=== PATIENT | male | born 1960 | race Caucasian/White ===

== ENCOUNTER 2021-06-10 18:29 | Emergency (ER) | payer BC ==
[2021-06-10 19:12] VITALS: TEMP 98.2
--- NOTE | 2021-06-10 19:32 | XR ---
EXAMINATION TYPE: XR ankle complete RT DATE OF EXAM: 06/10/2021 COMPARISON: NONE HISTORY: Ankle pain TECHNIQUE: 3 views FINDINGS: There is plantar and Achilles calcaneal spurring. Ankle mortise is anatomic. There is soft tissue swelling over the lateral malleolus. IMPRESSION: Calcaneal spurring. Soft tissue swelling. No fracture seen.
--- NOTE | 2021-06-10 21:19 | ED ---
Fall HPI - General Chief Complaint: Fall Stated Complaint: Fell,RT ankle injury Time Seen by Provider: 06/10/21 21:18 Source: patient Mode of arrival: ambulatory - Related Data Home Medications Medication Instructions Recorded Confirmed Simvastatin [Zocor] 20 mg PO HS 01/19/16 01/19/16 Allergies Allergy/AdvReac Type Severity Reaction Status Date / Time No Known Allergies Allergy Verified 06/10/21 19:08 Review of Systems ROS Statement: Those systems with pertinent positive or pertinent negative responses have been documented in the HPI. ROS Other: All systems not noted in ROS Statement are negative. Past Medical History Past Medical History: Hyperlipidemia History of Any Multi-Drug Resistant Organisms: None Reported Past Surgical History: Orthopedic Surgery Additional Past Surgical History / Comment(s): knee surg colonoscopy lump removed from l breast Past Psychological History: No Psychological Hx Reported Smoking Status: Current every day smoker Past Alcohol Use History: Occasional Past Drug Use History: Marijuana General Exam Limitations: no limitations Course Vital Signs 06/10/21 19:08 Temperature 98.2 F Pulse Rate 84 Respiratory 20 Rate Blood Pressure 173/79 O2 Sat by Pulse 96 Oximetry Disposition Clinical Impression: Fall, Ankle sprain Condition: Good Instructions (If sedation given, give patient instructions): Ankle Sprain (ED) Is patient prescribed a controlled substance at d/c from ED?: No Referrals: Vandana Marmolejo MD [Primary Care Provider] - 1-2 days
[2021-06-10 21:56] VITALS: BP 164/80; PULSE 89; RESP 16
[2021-06-10] MEDS ORDERED: KETOROLAC 15 MG/ML 1 ML VIAL IM STA (22:15)
--- NOTE | 2021-06-10 22:18 | ED ---
Fall HPI - General Chief Complaint: Fall Stated Complaint: Fell,RT ankle injury Time Seen by Provider: 06/10/21 21:18 Source: patient Mode of arrival: ambulatory - History of Present Illness Initial Comments: This is a pleasant 60-year-old male who fell off a 5 foot ladder earlier this morning and twisted his right ankle. Patient complaining of pain to the lateral aspect of the ankle with medial pain which is more mild. Pain is exacerbated by movement and ambulation. Patient states she was able to ambulate for quite some time after the injury but then went home and the ankle stiffened up. Pain became worse when he got up again. He denies any other injuries. No proximal injuries. No back pain. There was no head or neck injury. Patient is not on blood thinners. MD Complaint: fall - Related Data Home Medications Medication Instructions Recorded Confirmed Simvastatin [Zocor] 20 mg PO HS 01/19/16 06/10/21 Previous Rx's Medication Instructions Recorded Naproxen [Naprosyn] 375 mg PO Q12HR PRN #20 tablet 06/10/21 Allergies Allergy/AdvReac Type Severity Reaction Status Date / Time No Known Allergies Allergy Verified 06/10/21 22:13 Review of Systems ROS Statement: Those systems with pertinent positive or pertinent negative responses have been documented in the HPI. ROS Other: All systems not noted in ROS Statement are negative. Past Medical History Past Medical History: Hyperlipidemia History of Any Multi-Drug Resistant Organisms: None Reported Past Surgical History: Orthopedic Surgery Additional Past Surgical History / Comment(s): knee surg colonoscopy lump removed from l breast Past Psychological History: No Psychological Hx Reported Smoking Status: Current every day smoker Past Alcohol Use History: Occasional Past Drug Use History: Marijuana General Exam - General Exam Comments Initial Comments: Nontoxic appearing male in no acute distress. Limitations: no limitations General appearance: alert, in no apparent distress Head exam: Present: atraumatic, normocephalic, normal inspection Eye exam: Present: normal appearance, EOMI ENT exam: Present: normal exam Neck exam: Present: normal inspection. Absent: tenderness, meningismus, lymphadenopathy Respiratory exam: Present: normal lung sounds bilaterally. Absent: respiratory distress, wheezes, rales, rhonchi, stridor Cardiovascular Exam: Present: regular rate, normal rhythm, normal heart sounds. Absent: systolic murmur, diastolic murmur, rubs, gallop, clicks GI/Abdominal exam: Present: soft. Absent: tenderness Extremities exam: Present: tenderness (No distal or proximal tenderness. No break in skin integrity. Capillary refill less than 2 seconds.), normal capillary refill, joint swelling, other (Soft tissue swelling noted to both the medial and lateral aspect of the ankle. Tenderness over the ATF ligament. No bony point tenderness. Negative Cruz's test. Mild tenderness of the deltoid ligament. No tenderness distally or proximally. ). Absent: full ROM, pedal edema, calf tenderness Course Vital Signs 06/10/21 06/10/21 19:08 21:55 Temperature 98.2 F Pulse Rate 84 89 Respiratory 20 16 Rate Blood Pressure 173/79 164/80 O2 Sat by Pulse 96 97 Oximetry Medical Decision Making - Medical Decision Making Patient actually passes [place] ankle rules. There splint applied. Conservative therapy discussed. Patient given follow-up with orthopedics. All questions answered. Patient had no associated injuries. Patient was told to return to the ER for any signs or symptoms worsen. Told to return immediately if any other problems arise. All questions answered. Treatment plan discussed. Patient in agreement Every effort has been made to ensure accuracy of this dictation. However, due to the limitations of electronic medical records and dictation devices, errors in charting still occur. - Radiology Data Radiology results: report reviewed (No acute abnormality, I did review these myself.), image reviewed Disposition Clinical Impression: Fall, Sprain of anterior talofibular ligament of right ankle Disposition: HOME SELF-CARE Condition: Good Instructions (If sedation given, give patient instructions): Ankle Sprain (ED) Additional Instructions: Follow-up with orthopedics as directed. Follow-up with your regular physician as directed. Return to the ER immediately if any symptoms worsen, new symptoms arise, or any other problems develop. Prescriptions: Naproxen [Naprosyn] 375 mg PO Q12HR PRN #20 tablet PRN Reason: Pain Is patient prescribed a controlled substance at d/c from ED?: No Referrals: Sharad Kern MD [STAFF PHYSICIAN] - 06/17/21 Vandana Marmolejo MD [Primary Care Provider] - 06/17/21 Time of Disposition: 22:17
== END 2021-06-10 22:29 | disposition home or self-care (01) ==
LOC: EC 18:29
DX: S93.491A Sprain of other ligament of right ankle, initial encounter (principal); E78.5 Hyperlipidemia, unspecified; F17.200 Nicotine dependence, unspecified, uncomplicated; F12.90 Cannabis use, unspecified, uncomplicated; W11.XXXA Fall on and from ladder, initial encounter
CPT/HCPCS: 99283; 96372; 73610; J1885